=== PATIENT | female | born 1985 | race Caucasian/White ===

== ENCOUNTER 2017-09-23 22:22 | Emergency (ER) | payer MEDICAID ==
[2017-09-23] MEDS ORDERED: traMADol 50 MG Tab PO ONE (22:23)
[2017-09-23] MEDS ORDERED: Acetaminophen 500 MG Tab PO ONE (22:48)
[2017-09-23] MEDS ORDERED: oxyCODONE 5 MG Tab PO ONE (22:49)
[2017-09-24] MEDS ORDERED: traMADol 50 MG Tab PO ONE (00:14)
--- NOTE | 2017-09-24 01:10 | EDM.PDOC ---
ED HPI GENERAL MEDICAL PROBLEM - General Chief Complaint: Lower Extremity Injury/Pain Stated Complaint: UNCONTROLLED PAIN Time Seen by Provider: 09/23/17 22:50 Source of Information: Reports: Patient, Family History Limitations: Reports: No Limitations - History of Present Illness Onset: Gradual Onset Date: 09/18/17 Onset Time: 08:00 Duration: Getting Worse Location: Reports: Lower Extremity, Left, Lower Extremity, Right Quality: Reports: Ache, Same as Previous Episode Severity: Moderate Improves with: Reports: Immobilization, Medication Worsens with: Reports: Movement Context: Reports: Other (History of arthritis) Associated Symptoms: Reports: No Other Symptoms Left Knee Pain Score (Numeric/FACES): 8 - Related Data Allergies Allergy/AdvReac Type Severity Reaction Status Date / Time amoxicillin Allergy Swelling Verified 09/23/17 23:46 clindamycin Allergy Anaphylactic Verified 09/23/17 23:46 Shock ketoprofen Allergy Swelling Verified 09/23/17 23:46 ketorolac tromethamine Allergy Nausea and Verified 09/23/17 23:46 [From Toradol] Vomiting metronidazole [From Flagyl] Allergy Swelling Verified 09/23/17 23:46 NSAIDS (Non-Steroidal Allergy Nausea and Verified 09/23/17 23:46 Anti-Inflamma Vomiting promethazine HCl Allergy Abdominal Verified 09/23/17 23:46 [From Phenergan] Pain Home Meds: Home Meds Acetaminophen [Tylenol Arthritis Pain] 2 tab Q4H 09/23/17 [History] oxyCODONE [oxyCODONE] 5 mg Q6H 09/23/17 [History] Past Medical History Cardiovascular History: Reports: Other (See Below) Other Cardiovascular History: States she has a history of lymphedema. Respiratory History: Reports: Pneumonia, Recurrent Gastrointestinal History: Reports: Irritable Bowel Syndrome Other Gastrointestinal History: States she has a history of elevated AST levels. Genitourinary History: Reports: Pyelonephritis, Renal Disease, UTI, Recurrent, Other (See Below) Other Genitourinary History: States she has a history of kidney infections. DOLL SURGEON History: Reports: , Other (See Below) Other OB/BYN History: , has had both tubes removed in past. 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 Hx lower lumbar lordosis, bulging discs S1-S2. Hx fx L ankle fx, fx L fibula, fx L tibia, fx R& L ribs, fx collarbone R, fx 3rd & 4th L finger. Neurological History: Reports: Concussion, Migraines Psychiatric History: Reports: Anxiety Endocrine/Metabolic History: Reports: Obesity/BMI 30+ Dermatologic History: Reports: Cellulitis, Eczema - Infectious Disease History Infectious Disease History: Reports: Chicken Pox, MRSA, Scarlet Fever, Other ( See Below) Other Infectious Disease History: MRSA groin - Past Surgical History HEENT Surgical History: Reports: Oral Surgery, Tonsillectomy, Other (See Below) GI Surgical History: Reports: Cholecystectomy Female Surgical History: Reports: Tubal Ligation, Other (See Below) Other Female Surgeries/Procedures: Has had hx tubal , has had both tubes removed. Musculoskeletal Surgical History: Reports: Arthroscopic Knee, Other (See Below) Other Musculoskeletal Surgeries/Procedures:: Lateral release bilat knees/scopes , L knee scope Social & Family History - Family History Family Medical History: Noncontributory - Tobacco Use Smoking Status *Q: Current Every Day Smoker Years of Tobacco use: 15 Packs/Tins Daily: 0.2 Used Tobacco, but Quit: No Second Hand Smoke Exposure: Yes - Caffeine Use Caffeine Use: Reports: Coffee, Soda Caffeine Use Comment: 1.5 poys a day, 2-3 sodas - Recreational Drug Use Recreational Drug Use: No Drug Use in Last 12 Months: No Recreational Drug Type: Reports: Marijuana/Hashish Review of Systems - Review of Systems Review Of Systems: See Below Constitutional: Reports: No Symptoms Eyes: Reports: No Symptoms Ears: Reports: No Symptoms Nose: Reports: No Symptoms Mouth/Throat: Reports: No Symptoms Respiratory: Reports: No Symptoms Cardiovascular: Reports: No Symptoms GI/Abdominal: Reports: No Symptoms Genitourinary: Reports: No Symptoms Musculoskeletal: Reports: Joint Pain, Joint Swelling Skin: Reports: No Symptoms Neurological: Reports: No Symptoms Psychiatric: Reports: No Symptoms ED EXAM, GENERAL - Physical Exam Exam: See Below Exam Limited By: No Limitations General Appearance: Alert, WD/WN, No Apparent Distress Eye Exam: Bilateral Eye: EOMI, Normal Fundi, Normal Inspection, PERRL Ears: Normal External Exam, Normal Canal, Hearing Grossly Normal, Normal TMs Ear Exam: Bilateral Ear: Auricle Normal, Canal Normal, TM normal Nose: Normal Inspection, Normal Mucosa, No Blood Throat/Mouth: Normal Inspection, Normal Lips, Normal Teeth, Normal Gums, Normal Oropharynx, Normal Voice, No Airway Compromise Head: Atraumatic, Normocephalic Neck: Normal Inspection, Supple, Non-Tender, Full Range of Motion Respiratory/Chest: No Respiratory Distress, Lungs Clear, Normal Breath Sounds, No Accessory Muscle Use, Chest Non-Tender Cardiovascular: Normal Peripheral Pulses, Regular Rate, Rhythm, No Edema, No Gallop, No JVD, No Murmur, No Rub GI/Abdominal: Normal Bowel Sounds, Soft, Non-Tender, No Organomegaly, No Distention, No Abnormal Bruit, No Mass Back Exam: Normal Inspection, Full Range of Motion, NT Extremities: Joint Swelling (Left knee is swollen and tender), Leg Pain (Both knees and both hips.) Neurological: Alert, Oriented, CN II-XII Intact, Normal Cognition, Normal Gait, Normal Reflexes, No Motor/Sensory Deficits Psychiatric: Normal Affect, Normal Mood Skin Exam: Warm, Dry, Intact, Normal Color, No Rash Lymphatic: No Adenopathy Course - Vital Signs Text/Narrative:: Patient had an uneventful ED course. Her labs were all normal except for a chronically elevated WBC. Her x-rays showed arthritis but otherwise were OK. She was given 10 mg of Oxycodone and 100 mg of Tramadol and her pain dropped from a 9/10 to 4/10 level. She will continue with her Oxydodone as prescribed and Tramadol 50 mg po q 4 hours prn. She will follow up with her Orthopedic Surgeon next week as scheduled. Last Recorded V/S: Last Vital Signs Temp 36.7 C 09/23/17 22:43 Pulse 75 09/23/17 22:43 Resp 18 09/23/17 23:45 BP 123/68 09/23/17 23:45 Pulse Ox 99 09/23/17 23:45 - Orders/Labs/Meds Orders: Active Orders 24 hr Category Date Time Status Hip Min 2V w Pelvis Bi [CR] Stat Exams 09/23/17 22:46 Taken Knee 3V Lt [CR] Stat Exams 09/23/17 22:47 Taken Labs: Laboratory Tests 01/06/18 01/06/18 01/07/18 Range/Units 23:22 23:22 00:08 WBC 14.4 H (4.5-12.0) X10-3/uL RBC 4.74 (3.23-5.20) x10(6)uL Hgb 14.7 (11.5-15.5) g/dL Hct 43.6 (30.0-51.3) % MCV 92.0 (80-96) fL MCH 31.0 (27.7-33.6) pg MCHC 33.7 (32.2-35.4) g/dL RDW 13.3 (11.5-15.5) % Plt Count 309 (125-369) X10(3)uL MPV 7.9 (7.4-10.4) fL Add Manual Diff Yes Neutrophils % (Manual) 65 (46-82) % Band Neutrophils % 3 (0-6) % Lymphocytes % (Manual) 26 (13-37) % Monocytes % (Manual) 6 (4-12) % D-Dimer, Quantitative 208 (100-400) ng/mL Sodium 145 (135-145) mmol/L Potassium 3.8 (3.5-5.3) mmol/L Chloride 106 (100-110) mmol/L Carbon Dioxide 31 (21-32) mmol/L BUN 12 (7-18) mg/dL Creatinine 0.8 (0.55-1.02) mg/dL Est Cr Clr Drug Dosing 95.38 mL/min Estimated GFR (MDRD) > 60 (>60) BUN/Creatinine Ratio 15.0 (9-20) Glucose 94 (80-116) mg/dL Calcium 9.1 (8.6-10.2) mg/dL Total Bilirubin 0.1 (0.1-1.3) mg/dL AST 34 H (5-25) IU/L ALT 32 (12-36) U/L Alkaline Phosphatase 89 (56-112) IU/L C-Reactive Protein (0.5-0.9) mg/dL Total Protein 7.8 (6.0-8.0) g/dL Albumin 3.4 L (3.5-5.2) g/dL Globulin 4.4 g/dL Albumin/Globulin Ratio 0.8 Urine Color (YELLOW) Urine Appearance (CLEAR) Urine pH (5.0-6.5) Ur Specific [place] (1.010-1.025) Urine Protein (NEGATIVE) mg/dL Urine Glucose (UA) (NEGATIVE) mg/dL Urine Ketones (NEGATIVE) mg/dL Urine Occult Blood (NEGATIVE) Urine Nitrite (NEGATIVE) Urine Bilirubin (NEGATIVE) Urine Urobilinogen (NEGATIVE) mg/dL Ur Leukocyte Esterase (NEGATIVE) Urine RBC (0) Urine WBC (0) Ur Squamous Epith Cells (NS,R,O) Urine Bacteria (NS) 09/24/17 09/24/17 Range/Units 00:08 00:20 WBC (4.5-12.0) X10-3/uL RBC (3.23-5.20) x10(6)uL Hgb (11.5-15.5) g/dL Hct (30.0-51.3) % MCV (80-96) fL MCH (27.7-33.6) pg MCHC (32.2-35.4) g/dL RDW (11.5-15.5) % Plt Count (125-369) X10(3)uL MPV (7.4-10.4) fL Add Manual Diff Neutrophils % (Manual) (46-82) % Band Neutrophils % (0-6) % Lymphocytes % (Manual) (13-37) % Monocytes % (Manual) (4-12) % D-Dimer, Quantitative (100-400) ng/mL Sodium (135-145) mmol/L Potassium (3.5-5.3) mmol/L Chloride (100-110) mmol/L Carbon Dioxide (21-32) mmol/L BUN (7-18) mg/dL Creatinine (0.55-1.02) mg/dL Est Cr Clr Drug Dosing mL/min Estimated GFR (MDRD) (>60) BUN/Creatinine Ratio (9-20) Glucose (80-116) mg/dL Calcium (8.6-10.2) mg/dL Total Bilirubin (0.1-1.3) mg/dL AST (5-25) IU/L ALT (12-36) U/L Alkaline Phosphatase (56-112) IU/L C-Reactive Protein 0.6 (0.5-0.9) mg/dL Total Protein (6.0-8.0) g/dL Albumin (3.5-5.2) g/dL Globulin g/dL Albumin/Globulin Ratio Urine Color Yellow (YELLOW) Urine Appearance Clear (CLEAR) Urine pH 6.0 (5.0-6.5) Ur Specific [place] 1.030 H (1.010-1.025) Urine Protein Negative (NEGATIVE) mg/dL Urine Glucose (UA) 50 H (NEGATIVE) mg/dL Urine Ketones Negative (NEGATIVE) mg/dL Urine Occult Blood Moderate H (NEGATIVE) Urine Nitrite Negative (NEGATIVE) Urine Bilirubin Negative (NEGATIVE) Urine Urobilinogen Normal (NEGATIVE) mg/dL Ur Leukocyte Esterase Negative (NEGATIVE) Urine RBC 5-10 (0) Urine WBC 0-5 (0) Ur Squamous Epith Cells Few H (NS,R,O) Urine Bacteria Few H (NS) Meds: Medications Discontinued Medications Generic Name Dose Route Start Last Admin Trade Name Freq PRN Reason Stop Dose Admin Acetaminophen 500 mg 09/23/17 22:48 09/23/17 23:18 Tylenol Extra Strength PO 09/23/17 22:49 500 mg ONETIME ONE Administration Oxycodone HCl 10 mg 09/23/17 22:49 09/23/17 23:17 Oxycodone PO 09/23/17 22:50 10 mg ONETIME ONE Administration Tramadol HCl 100 mg 09/24/17 00:14 09/24/17 00:18 Ultram PO 09/24/17 00:15 100 mg ONETIME ONE Administration Departure - Departure Time of Disposition: 01:33 Disposition: Home, Self-Care 01 Condition: Good Clinical Impression: Osteoarthritis involving multiple joints on both sides of body - Discharge Information Referrals: PCP,Not In Area [Primary Care Provider] - - My Orders Last 24 Hours: My Active Orders 09/23/17 22:46 Hip Min 2V w Pelvis Bi [CR] Stat 09/23/17 22:47 Knee 3V Lt [CR] Stat - Assessment/Plan Last 24 Hours: My Active Orders 09/23/17 22:46 Hip Min 2V w Pelvis Bi [CR] Stat 09/23/17 22:47 Knee 3V Lt [CR] Stat
[2017-09-24 02:03] VITALS: BP 134/80
--- NOTE | 2017-09-25 11:40 | CR ---
INDICATION: Left knee pain and swelling. LEFT KNEE: Three views of the left knee were obtained and revealed femorotibial and patellofemoral joint spaces to appear well maintained. No significant appearing bone or joint abnormality was identified. IMPRESSION: Normal left knee. MTDD
--- NOTE | 2017-09-25 11:40 | CR ---
INDICATION: Bilateral hip pain, left worse than right. PELVIS WITH BOTH HIPS: Frontal view of the pelvis with lateral views of both hips revealed mild hypertrophic degenerative changes at the left hip joint. No significant hypertrophic changes are seen on the right. Sacroiliac joints appear to be fairly intact. The hip joint spaces appear to be fairly well maintained. Overall bone density appeared to be normal. A small ischial density cranial to the acetabulum on the right is likely a benign bone island of minimal size. IMPRESSION: Minimal osteoarthritis left hip joint. MTDD
== END 2017-09-24 01:55 | disposition home or self-care (01) ==
LOC: FB.ED 22:22
DX: M17.12 Unilateral primary osteoarthritis, left knee (principal); M16.0 Bilateral primary osteoarthritis of hip; Z88.8 Allergy status to other drugs, medicaments and biological substances; Z88.1 Allergy status to other antibiotic agents; F17.210 Nicotine dependence, cigarettes, uncomplicated
CPT/HCPCS: 36415; 73521; 73562; 80053; 81001; 85025; 85379; 86140; 99284; A9270

== ENCOUNTER 2018-04-28 18:14 | Emergency (ER) | payer MEDICAID ==
[2018-04-28 18:49] VITALS: BP 118/71
[2018-04-28] MEDS ORDERED: HYDROmorphone 2 MG/ML SDV IM ONE (20:28)
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
--- NOTE | 2018-04-30 13:08 | CR ---
INDICATION: Trauma, four days. LEFT RIBS WITH CHEST: CHEST: PA view of the chest 04/28/2018, compared with 02/02/2016, revealed heavy markings at the lung bases, most likely fibrotic in nature. Density at the right lung base is compatible with fibrosis from previous pneumonia in the right lower lobe. The heart, mediastinum, and bony thorax are unremarkable. No definite active infiltrate, effusion, contusion, or pneumothorax was identified. IMPRESSION: No definite acute process. Heavy markings at the lung bases make it difficult to entirely exclude minimal patchy bronchopneumonia, however. LEFT RIBS: Four views of the left ribs were obtained 04/28/2018 - no comparisons. No fracture, dislocation, or other definite bony abnormality could be identified. MTDD
== END 2018-04-28 21:35 | disposition home or self-care (01) ==
LOC: FB.ED 18:14
DX: S29.9XXA Unspecified injury of thorax, initial encounter (principal); S79.912A Unspecified injury of left hip, initial encounter; S40.022A Contusion of left upper arm, initial encounter; R10.9 Unspecified abdominal pain; F17.210 Nicotine dependence, cigarettes, uncomplicated; Z88.1 Allergy status to other antibiotic agents; Z88.5 Allergy status to narcotic agent; Z88.8 Allergy status to other drugs, medicaments and biological substances; V49.9XXA Car occupant (driver) (passenger) injured in unspecified traffic accident, initial encounter
CPT/HCPCS: 71101; 74176; 81001; 96372; 99284; J1170

== ENCOUNTER 2020-08-19 15:30 | Emergency (ER) | payer MEDICAID ==
[2020-08-19] MEDS ORDERED: Sodium Chloride 0.9% 10 ML Syringe FLUSH PRN (16:02)
[2020-08-19] MEDS ORDERED: Morphine 2 MG/ML SYRINGE IVPUSH ONE (16:05)
[2020-08-19] MEDS ORDERED: Ondansetron 4 MG/2 ML SDV IVPUSH ONE (16:05)
[2020-08-19] MEDS ORDERED: Sodium Chloride 0.9% 1,000 ML IV SCH (16:15)
[2020-08-19] MEDS ORDERED: Iopamidol 755 Mg/ML 100 ML Bottle IV ONE (16:56)
[2020-08-19] MEDS ORDERED: Morphine 2 MG/ML SYRINGE IVPUSH STA (18:11)
--- NOTE | 2020-08-19 18:42 | EDM.PDOC ---
ED HPI GENERAL MEDICAL PROBLEM - General Chief Complaint: Flank Pain Stated Complaint: ABD PAIN/KIDNEY Time Seen by Provider: 08/19/20 15:40 Source of Information: Reports: Patient History Limitations: Reports: No Limitations - History of Present Illness INITIAL COMMENTS - FREE TEXT/NARRATIVE: Patient presented to the ED because of RUQ pain which started 4 days ago. The pain is sharp,8/10, with associated N/V/D. There is no associated fever,chills, R flank Pain Score (Numeric/FACES): 10 - Related Data Allergies Allergy/AdvReac Type Severity Reaction Status Date / Time amoxicillin Allergy Swelling Verified 07/29/18 22:08 clindamycin Allergy Anaphylactic Verified 07/29/18 22:08 Shock ketoprofen Allergy Swelling Verified 07/29/18 22:08 ketorolac tromethamine Allergy Nausea and Verified 07/29/18 22:08 [From Toradol] Vomiting metoclopramide [From Reglan] Allergy Excitabilit Verified 08/19/20 15:40 y metronidazole [From Flagyl] Allergy Swelling Verified 07/29/18 22:08 NSAIDS (Non-Steroidal Allergy Nausea and Verified 07/29/18 22:08 Anti-Inflamma Vomiting promethazine HCl Allergy Abdominal Verified 07/29/18 22:08 [From Phenergan] Pain Home Meds: Home Meds NK [No Known Home Meds] 07/29/18 [History] Past Medical History Other HEENT History: R ear pain x past 2 weeks, in congested with cloudy nasal drainage. Cardiovascular History: Reports: Other (See Below) Other Cardiovascular History: States she has a history of lymphedema. Respiratory History: Reports: Asthma, Pneumonia, Recurrent Gastrointestinal History: Reports: Irritable Bowel Syndrome Other Gastrointestinal History: States she has a history of elevated AST levels. Genitourinary History: Reports: Pyelonephritis, Renal Calculus, Renal Disease, UTI, Recurrent, Other (See Below) Other Genitourinary History: States she has a history of kidney infections. [employer] History: Reports: , Other (See Below) Other [employer]ANCE History: , has had both fallopian tubes removed in past. 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 Hx lower lumbar lordosis, bulging discs S1-S2. Hx fx L ankle fx, fx L fibula, fx L tibia, fx R& L ribs, fx collarbone R, fx 3rd & 4th L finger. Neurological History: Reports: Migraines Psychiatric History: Reports: Anxiety, Panic Attack, Psych Hospitalization(s), Suicide Attempt Endocrine/Metabolic History: Reports: Obesity/BMI 30+ Dermatologic History: Reports: Cellulitis, Eczema, Other (See Below) Other Dermatologic History: hx lymph edema - Infectious Disease History Infectious Disease History: Reports: Chicken Pox, MRSA Other Infectious Disease History: MRSA groin - Past Surgical History HEENT Surgical History: Reports: Adenoidectomy, Oral Surgery, Tonsillectomy, Other (See Below) Other HEENT Surgeries/Procedures: Several teeth have been pulled, including [place] teeth. Cardiovascular Surgical History: Reports: None GI Surgical History: Reports: Cholecystectomy Female Surgical History: Reports: Tubal Ligation, Other (See Below) Other Female Surgeries/Procedures: Has had hx tubal , has had both tubes removed. Musculoskeletal Surgical History: Reports: Arthroscopic Knee, Other (See Below) Other Musculoskeletal Surgeries/Procedures:: Lateral release bilat knees/scopes, bilat knee scope Social & Family History - Family History Family Medical History: Unobtainable - Tobacco Use Tobacco Use Status *Q: Current Every Day Tobacco User Years of Tobacco use: 16 Packs/Tins Daily: 0.7 - Caffeine Use Caffeine Use: Reports: Coffee, Energy Drinks, Soda, Tea Caffeine Use Comment: 1.5 poys a day, 2-3 sodas - Recreational Drug Use Recreational Drug Use: No ED ROS GENERAL - Review of Systems Review Of Systems: See Below Constitutional: Reports: No Symptoms HEENT: Reports: No Symptoms Respiratory: Reports: No Symptoms Cardiovascular: Reports: No Symptoms Endocrine: Reports: No Symptoms GI/Abdominal: Reports: Abdominal Pain, Diarrhea, Nausea, Vomiting : Reports: No Symptoms Musculoskeletal: Reports: No Symptoms Skin: Reports: No Symptoms Neurological: Reports: No Symptoms ED EXAM, GI/ABD - Physical Exam Exam: See Below Exam Limited By: No Limitations General Appearance: Alert, No Apparent Distress Ears: Normal External Exam, Normal Canal Nose: Normal Inspection, Normal Mucosa Throat/Mouth: Normal Inspection, Normal Lips, Normal Teeth Head: Atraumatic, Normocephalic Neck: Normal Inspection, Supple, Non-Tender, Full Range of Motion Respiratory/Chest: No Respiratory Distress, Lungs Clear, Normal Breath Sounds Cardiovascular: Normal Peripheral Pulses, Regular Rate, Rhythm, No Edema, No Gallop GI/Abdominal Exam: Normal Bowel Sounds, Soft, Non-Tender, No Organomegaly Back Exam: Normal Inspection, Full Range of Motion Extremities: Normal Inspection, Normal Range of Motion, Non-Tender Course - Vital Signs Text/Narrative:: Labs/CT abd/pelvis result was discussed with patient NS 1 L bolus Zofran 4 mg IV x1 Morphine 2 mg IV x2 doses Last Recorded V/S: Last Vital Signs Temp 36.7 C 08/19/20 15:35 Pulse 95 08/19/20 18:10 Resp 18 08/19/20 18:10 BP 128/81 08/19/20 18:10 Pulse Ox 99 08/19/20 18:10 - Orders/Labs/Meds Orders: Active Orders 24 hr Category Date Time Status Abdomen Pelvis wo Cont [CT] Stat Exams 08/19/20 16:06 Taken Saline Lock Insert [OM.PC] Routine Oth 08/19/20 16:02 Ordered Labs: Laboratory Tests 08/19/20 08/19/20 08/19/20 Range/Units 15:50 15:50 15:55 WBC 12.6 H (3.0-10.3) x10-3/uL RBC 4.84 (3.60-5.20) x10(6)uL Hgb 14.8 (11.4-15.5) g/dL Hct 44.8 (34.2-48.2) % MCV 92.6 (76.7-100.5) fL MCH 30.5 (23.9-33.9) pg MCHC 32.9 (31.9-34.8) g/dL RDW 14.0 (12.3-16.5) % Plt Count 361 (151-488) x10(3)uL MPV 7.7 (7.1-12.4) fL Neut % (Auto) 69.3 (30.8-76.2) % Lymph % (Auto) 21.3 (18.4-52.1) % [place] % (Auto) 6.4 (4.4-15.7) % Eos % (Auto) 2.1 (0.6-8.1) % Baso % (Auto) 0.9 (0.2-1.5) % Neut # (Auto) 8.7 H (1.5-6.3) x10-3/uL Lymph # (Auto) 2.7 (1.0-4.4) x10-3/uL [place] # (Auto) 0.8 (0.3-1.0) x10-3/uL Eos # (Auto) 0.3 (0.0-0.8) x10-3/uL Baso # (Auto) 0.1 (0.0-0.1) x10-3/uL Sodium (135-145) mmol/L Potassium (3.5-5.3) mmol/L Chloride (100-110) mmol/L Carbon Dioxide (21-32) mmol/L BUN (7-18) mg/dL Creatinine (0.55-1.02) mg/dL Est Cr Clr Drug Dosing mL/min Estimated GFR (MDRD) (>60) BUN/Creatinine Ratio (9-20) Glucose (80-116) mg/dL Calcium (8.6-10.2) mg/dL Total Bilirubin (0.1-1.3) mg/dL AST (5-25) IU/L ALT (12-36) U/L Alkaline Phosphatase (56-112) IU/L NT-Pro-B Natriuret Pep (<=125) pg/mL Total Protein (6.0-8.0) g/dL Albumin (3.5-5.2) g/dL Globulin g/dL Albumin/Globulin Ratio Urine Color Yellow (YELLOW) Urine Appearance Clear (CLEAR) Urine pH 5.0 (5.0-6.5) Ur Specific [place] 1.010 (1.010-1.025) Urine Protein Negative (NEGATIVE) mg/dL Urine Glucose (UA) Normal (NORMAL) mg/dL Urine Ketones Negative (NEGATIVE) mg/dL Urine Occult Blood Moderate H (NEGATIVE) Urine Nitrite Negative (NEGATIVE) Urine Bilirubin Negative (NEGATIVE) Urine Urobilinogen Normal (NEGATIVE) mg/dL Ur Leukocyte Esterase Negative (NEGATIVE) Urine RBC 0-5 (0-5) Urine WBC 0-5 (0-5) Ur Squamous Epith Cells Few H (NS,R,O) Urine Bacteria Rare H (NS) Urine HCG, Qual Negative (NEGATIVE) 12/02/20 12/02/20 Range/Units 15:55 15:55 WBC (3.0-10.3) x10-3/uL RBC (3.60-5.20) x10(6)uL Hgb (11.4-15.5) g/dL Hct (34.2-48.2) % MCV (76.7-100.5) fL MCH (23.9-33.9) pg MCHC (31.9-34.8) g/dL RDW (12.3-16.5) % Plt Count (151-488) x10(3)uL MPV (7.1-12.4) fL Neut % (Auto) (30.8-76.2) % Lymph % (Auto) (18.4-52.1) % [place] % (Auto) (4.4-15.7) % Eos % (Auto) (0.6-8.1) % Baso % (Auto) (0.2-1.5) % Neut # (Auto) (1.5-6.3) x10-3/uL Lymph # (Auto) (1.0-4.4) x10-3/uL [place] # (Auto) (0.3-1.0) x10-3/uL Eos # (Auto) (0.0-0.8) x10-3/uL Baso # (Auto) (0.0-0.1) x10-3/uL Sodium 139 (135-145) mmol/L Potassium 4.1 (3.5-5.3) mmol/L Chloride 103 (100-110) mmol/L Carbon Dioxide 26 (21-32) mmol/L BUN 15 (7-18) mg/dL Creatinine 0.9 (0.55-1.02) mg/dL Est Cr Clr Drug Dosing 80.00 mL/min Estimated GFR (MDRD) > 60 (>60) BUN/Creatinine Ratio 16.7 (9-20) Glucose 104 (80-116) mg/dL Calcium 9.1 (8.6-10.2) mg/dL Total Bilirubin 0.3 (0.1-1.3) mg/dL AST 40 H D (5-25) IU/L ALT 34 (12-36) U/L Alkaline Phosphatase 102 (56-112) IU/L NT-Pro-B Natriuret Pep 163 H (<=125) pg/mL Total Protein 7.9 (6.0-8.0) g/dL Albumin 3.5 (3.5-5.2) g/dL Globulin 4.4 g/dL Albumin/Globulin Ratio 0.8 Urine Color (YELLOW) Urine Appearance (CLEAR) Urine pH (5.0-6.5) Ur Specific [place] (1.010-1.025) Urine Protein (NEGATIVE) mg/dL Urine Glucose (UA) (NORMAL) mg/dL Urine Ketones (NEGATIVE) mg/dL Urine Occult Blood (NEGATIVE) Urine Nitrite (NEGATIVE) Urine Bilirubin (NEGATIVE) Urine Urobilinogen (NEGATIVE) mg/dL Ur Leukocyte Esterase (NEGATIVE) Urine RBC (0-5) Urine WBC (0-5) Ur Squamous Epith Cells (NS,R,O) Urine Bacteria (NS) Urine HCG, Qual (NEGATIVE) Meds: Medications Discontinued Medications Generic Name Dose Route Start Last Admin Trade Name Freq PRN Reason Stop Dose Admin Sodium Chloride 1,000 mls @ 999 mls/hr 08/19/20 16:15 08/19/20 16:35 Normal Saline IV 999 mls/hr ASDIRECTED JULIETA Administration Iopamidol 100 ml 08/19/20 16:56 08/19/20 16:57 Isovue-370 (76%) IV 08/19/20 16:57 Not Given . DIRECTED ONE Morphine Sulfate 2 mg 08/19/20 16:05 08/19/20 16:41 Morphine IVPUSH 08/19/20 16:06 2 mg ONETIME ONE Administration Morphine Sulfate 2 mg 08/19/20 18:11 08/19/20 18:15 Morphine IVPUSH 08/19/20 18:12 2 mg NOW STA Administration Ondansetron HCl 4 mg 08/19/20 16:05 08/19/20 16:39 Zofran IVPUSH 08/19/20 16:06 4 mg ONETIME ONE Administration Sodium Chloride 10 ml 08/19/20 16:02 Saline Flush FLUSH ASDIRECTED PRN Keep Vein Open Departure - Departure Time of Disposition: 18:40 Disposition: Home, Self-Care 01 Condition: Good Clinical Impression: Fatty liver, Peripheral edema, Acute gastroenteritis - Discharge Information Instructions: Fatty Liver Disease, Edema, [id number] Referrals: PCP,None [Primary Care Provider] - Forms: ED Department Discharge Additional Instructions: Please read discharge instructions on fatty liver and peripheral edema Fatty liver- you need to lose wt, diet, exercise With regards to your edema take lasix 20 mg once daily until your edema is gone then use it as needed Follow in 1-2 weeks Sepsis Event Note (ED) - Evaluation Sepsis Screening Result: No Definite Risk - Focused Exam Vital Signs: Vital Signs Temp Pulse Resp BP Pulse Ox 08/19/20 18:10 95 18 128/81 99 08/19/20 15:35 36.7 C 103 H 18 123/68 100 - My Orders Last 24 Hours: My Active Orders 08/19/20 16:02 Saline Lock Insert [OM.PC] Routine 08/19/20 16:06 Abdomen Pelvis wo Cont [CT] Stat - Assessment/Plan Last 24 Hours: My Active Orders 08/19/20 16:02 Saline Lock Insert [OM.PC] Routine 08/19/20 16:06 Abdomen Pelvis wo Cont [CT] Stat
[2020-08-19 21:41] VITALS: BP 128/81; PULSE 95
== END 2020-08-19 19:00 | disposition home or self-care (01) ==
LOC: FB.ED 15:30
DX: K52.9 Noninfective gastroenteritis and colitis, unspecified (principal); K76.0 Fatty (change of) liver, not elsewhere classified; J45.909 Unspecified asthma, uncomplicated; E66.9 Obesity, unspecified; Z68.42 Body mass index [BMI] 45.0-49.9, adult; F17.210 Nicotine dependence, cigarettes, uncomplicated; Z88.1 Allergy status to other antibiotic agents; Z88.5 Allergy status to narcotic agent; Z88.8 Allergy status to other drugs, medicaments and biological substances; Z88.6 Allergy status to analgesic agent
CPT/HCPCS: 36415; 74176; 80053; 81001; 81025; 83880; 85025; 96374; 96375; 96376; 99284-25; J2270; J2405; J7030